=== PATIENT | male | born 1985 | race Caucasian/White ===

== ENCOUNTER 2019-07-19 11:21 | Inpatient (IN) ==
[2019-07-19] MEDS ORDERED: Ondansetron 4 MG/2 ML VIAL IVP ONE (11:28)
[2019-07-19] MEDS ORDERED: *HR* HYDROmorphone (PF) 1 MG/ML SYRINGE IVP ONE ×2 (11:28→13:22)
[2019-07-19] MEDS ORDERED: Isovue-370 500 ML BOTTLE IVP ONE (11:28)
[2019-07-19] MEDS ORDERED: 0.9 % Sodium Chloride 1,000 ML IVC ONE (11:28)
[2019-07-19 11:55] LABS: Bacteria,Urine Few per hpf (None-Few); Hyaline Casts,Urine None Seen per lpf (None-Few); RBC,Urine 0-3 per hpf (0-3); Squamous Epithelial Cell,Urine Many per lpf (None-Few)
[2019-07-19 11:56] LABS: Basophils % 0.3 %; Hematocrit 52.2 % (37.5-50.1); Hemoglobin 18.6 g/dL (12.9-16.9); Immature Granulocytes % 0.6 % (0-4); Lymphocytes # 0.8 K/mcL (0.6-4.6); Lymphocytes % 5.3 %; Mean Corpuscular HGB Conc 35.6 g/dL (31.6-35.5); Mean Corpuscular Hemoglobin 30.3 pg (28.0-33.3); Monocytes # 0.6 K/mcL (0.0-1.3); Monocytes % 4.1 %; Neutrophils # 12.7 K/mcL (1.6-8.9); Platelet Count 298 K/mcL (140-400); Red Blood Count 6.14 M/mcL (4.19-5.50); Red Cell Distribution Width 12.3 % (11.5-14.5); Segmented Neutrophils % 89.7 %; White Blood Count 14.1 K/mcL (4.3-11.1)
[2019-07-19 12:00] LABS: Clarity,Urine Clear (Clear); Color,Urine Yellow (Yellow); Glucose,Urine (UA) Normal (Normal)
[2019-07-19 12:01] LABS: Bilirubin,Urine Small (Negative); Blood,Urine Negative (Negative); Ketones,Urine 80 mg/dL (Negative); PH,Urine 5.5 pH Units (5.0-8.0); Specific Gravity,Urine > 1.030 (1.010-1.025)
[2019-07-19 12:02] LABS: Leukocyte Esterase,Urine Trace (Negative); Nitrite,Urine Negative (Negative); Protein,Urine 100 mg/dL (Neg-Trace); Urobilinogen,Urine Normal (Normal)
[2019-07-19 12:10] LABS: Alanine Aminotransferase 11 Units/L (7-52); Albumin 5.6 g/dL (3.5-5.7); Albumin/Globulin Ratio 1.9 (1.1-2.2); Alkaline Phosphatase 82 Units/L (34-104); Aspartate Amino Transferase 18 Units/L (13-39); BUN/Creatinine Ratio 16 (6-26); Bilirubin,Direct 0.1 mg/dL (0.0-0.2); Bilirubin,Indirect 0.6 mg/dL (0.0-1.0); Bilirubin,Total 0.7 mg/dL (0.3-1.0); Blood Urea Nitrogen 18 mg/dL (6-20); Calcium 11.6 mg/dL (8.6-10.3); Carbon Dioxide 28 mEq/L (23-29); Chloride 96 mEq/L (98-107); Glucose 114 mg/dL (70-105); Lipase 19 Units/L (11-82); Osmolality,Calculated 295 (280-300); Sodium 141 mEq/L (136-145); Total Protein 8.6 g/dL (6.4-8.9); eGFR For African Americans > 60 (> 60); eGFR For Non-African Americans > 60 (> 60)
[2019-07-19 15:37] LABS: Magnesium 1.8 mg/dL (1.6-2.6); Phosphorous 4.1 mg/dL (2.7-4.5)
[2019-07-19] MEDS: 0.9 % Sodium Chloride 1,000 ML IVC SCH (15:55)
[2019-07-19] MEDS: Ondansetron 4 MG/2 ML VIAL IVP PRN (19:52)
[2019-07-20] MEDS: 0.9 % Sodium Chloride 1,000 ML IVC SCH ×3 (00:05→18:10)
[2019-07-20 06:13] LABS: Basophils # 0.1 K/mcL (0.0-0.2); Basophils % 0.5 %; Eosinophils # 0.1 K/mcL (0.0-0.6); Eosinophils % 0.5 %; Hematocrit 44.8 % (37.5-50.1); Hemoglobin 15.4 g/dL (12.9-16.9); Immature Granulocytes % 0.5 % (0-4); Lymphocytes % 9.4 %; Mean Corpuscular HGB Conc 34.4 g/dL (31.6-35.5); Mean Corpuscular Hemoglobin 30.6 pg (28.0-33.3); Mean Corpuscular Volume 89.1 fL (83.0-100.0); Mean Platelet Volume 9.2 fL (9.4-12.4); Monocytes # 0.9 K/mcL (0.0-1.3); Monocytes % 8.2 %; Platelet Count 203 K/mcL (140-400); Red Blood Count 5.03 M/mcL (4.19-5.50); Red Cell Distribution Width 12.7 % (11.5-14.5); Segmented Neutrophils % 80.9 %; White Blood Count 11.1 K/mcL (4.3-11.1)
[2019-07-20 06:28] LABS: BUN/Creatinine Ratio 13 (6-26); Blood Urea Nitrogen 15 mg/dL (6-20); Calcium 9.4 mg/dL (8.6-10.3); Carbon Dioxide 27 mEq/L (23-29); Chloride 103 mEq/L (98-107); Glucose 105 mg/dL (70-105); Osmolality,Calculated 295 (280-300); Potassium 3.7 mEq/L (3.5-5.1); Sodium 142 mEq/L (136-145); eGFR For African Americans > 60 (> 60); eGFR For Non-African Americans > 60 (> 60)
[2019-07-20] MEDS ORDERED: Pantoprazole 40 MG VIAL IVP SCH (09:00)
[2019-07-20] MEDS ORDERED: *HR* FentaNYL (PF) 100 MCG/2 ML VIAL IVP ONE (12:55)
[2019-07-20] MEDS ORDERED: Ondansetron 4 MG/2 ML VIAL IVP ONE ×2 (12:55→19:07)
[2019-07-20] MEDS ORDERED: Acetaminophen IV 1,000 MG/100 ML INFUS..BTL IVPB ONE (12:55)
[2019-07-20] MEDS: Gabapentin 400 MG CAPSULE PO SCH (16:15)
[2019-07-20] MEDS: Ondansetron 4 MG/2 ML VIAL IVP PRN (16:28)
[2019-07-20] MEDS ORDERED: Morphine Sulfate 2 MG/ML SYRINGE IVP ONE (17:14)
[2019-07-20] MEDS ORDERED: CefOXitin 1,000 MG VIAL ONE (19:00)
[2019-07-20] MEDS ORDERED: *HR* HYDROmorphone (PF) 1 MG/ML SYRINGE IVP PRN (19:07)
[2019-07-20] MEDS ORDERED: *HR* Promethazine 25 MG/ML VIAL IVP PRN (19:07)
[2019-07-20] MEDS ORDERED: *HR* Midazolam HCl 5 MG/5 ML VIAL IVP ONE (19:20)
[2019-07-20] MEDS ORDERED: *HR* FentaNYL (PF) 100 MCG/2 ML VIAL ONE (19:20)
[2019-07-20] MEDS ORDERED: *HR* Propofol 200 MG/20 ML VIAL IVP ONE (19:21)
[2019-07-20] MEDS ORDERED: *HR* Rocuronium Bromide 50 MG/5 ML VIAL ONE (19:26)
[2019-07-20] MEDS ORDERED: Lidocaine -MPF 1% 5 ML AMPUL ONE (19:26)
[2019-07-20] MEDS ORDERED: Dexamethasone 4 MG/ML VIAL ONE (19:28)
[2019-07-20] MEDS ORDERED: *HR* Succinylcholine 200 MG/10 ML VIAL IVP ONE (19:30)
[2019-07-20] MEDS ORDERED: Famotidine 20 MG/2 ML VIAL ONE (19:42)
[2019-07-20] MEDS ORDERED: *HR* HYDROMORPHONE 2 MG/ML VIAL ONE ×2 (20:51→21:05)
[2019-07-20] MEDS ORDERED: Ringers Solution, Lactated 1,000 ML ONE (21:52)
[2019-07-20] MEDS ORDERED: *HR* Labetalol 20 MG/4 ML SYRINGE IVP ONE ×2 (21:55→21:57)
[2019-07-20] MEDS ORDERED: *HR* Metoprolol 5 MG/5 ML VIAL IVP PRN (22:12)
[2019-07-20 23:35] LABS: Basophils % 0.2 %; Eosinophils % 0.1 %; Hematocrit 32.8 % (37.5-50.1); Immature Granulocytes % 0.3 % (0-4); Lymphocytes # 0.6 K/mcL (0.6-4.6); Lymphocytes % 4.9 %; Mean Corpuscular HGB Conc 34.1 g/dL (31.6-35.5); Mean Corpuscular Hemoglobin 30.7 pg (28.0-33.3); Mean Corpuscular Volume 89.9 fL (83.0-100.0); Mean Platelet Volume 9.2 fL (9.4-12.4); Monocytes # 1.3 K/mcL (0.0-1.3); Monocytes % 10.7 %; Neutrophils # 10.5 K/mcL (1.6-8.9); Platelet Count 248 K/mcL (140-400); Red Blood Count 3.65 M/mcL (4.19-5.50); Red Cell Distribution Width 12.6 % (11.5-14.5); Segmented Neutrophils % 83.8 %; White Blood Count 12.5 K/mcL (4.3-11.1)
[2019-07-20 23:36] LABS: Hemoglobin 11.2 g/dL (12.9-16.9)
[2019-07-20 23:54] LABS: Alanine Aminotransferase 6 Units/L (7-52); Albumin 3.2 g/dL (3.5-5.7); Alkaline Phosphatase 39 Units/L (34-104); Aspartate Amino Transferase 11 Units/L (13-39); BUN/Creatinine Ratio 12 (6-26); Bilirubin,Total 0.6 mg/dL (0.3-1.0); Blood Urea Nitrogen 15 mg/dL (6-20); Calcium 7.9 mg/dL (8.6-10.3); Carbon Dioxide 24 mEq/L (23-29); Chloride 106 mEq/L (98-107); Globulin 1.6 g/dL (2.4-3.5); Glucose 225 mg/dL (70-105); Osmolality,Calculated 294 (280-300); Sodium 138 mEq/L (136-145); Total Protein 4.8 g/dL (6.4-8.9); eGFR For African Americans > 60 (> 60); eGFR For Non-African Americans > 60 (> 60)
[2019-07-21] MEDS: 0.9 % Sodium Chloride 1,000 ML IVC SCH ×6 (00:12→23:26)
[2019-07-21 05:42] LABS: Basophils % 0.2 %; Hematocrit 29.2 % (37.5-50.1); Immature Granulocytes % 0.3 % (0-4); Lymphocytes # 0.5 K/mcL (0.6-4.6); Lymphocytes % 5.8 %; Mean Corpuscular HGB Conc 32.5 g/dL (31.6-35.5); Mean Corpuscular Hemoglobin 30.4 pg (28.0-33.3); Mean Corpuscular Volume 93.6 fL (83.0-100.0); Mean Platelet Volume 9.9 fL (9.4-12.4); Monocytes % 10.8 %; Neutrophils # 7.6 K/mcL (1.6-8.9); Platelet Count 205 K/mcL (140-400); Red Blood Count 3.12 M/mcL (4.19-5.50); Red Cell Distribution Width 12.7 % (11.5-14.5); Segmented Neutrophils % 82.9 %; White Blood Count 9.1 K/mcL (4.3-11.1)
[2019-07-21 05:48] LABS: Hemoglobin 9.5 g/dL (12.9-16.9)
[2019-07-21 08:03] LABS: BUN/Creatinine Ratio 14 (6-26); Blood Urea Nitrogen 20 mg/dL (6-20); Calcium 8.2 mg/dL (8.6-10.3); Carbon Dioxide 26 mEq/L (23-29); Chloride 104 mEq/L (98-107); Glucose 176 mg/dL (70-105); Osmolality,Calculated 299 (280-300); Potassium 4.4 mEq/L (3.5-5.1); Sodium 141 mEq/L (136-145); eGFR For African Americans > 60 (> 60); eGFR For Non-African Americans 59 (> 60)
[2019-07-21] MEDS ORDERED: Ondansetron 4 MG/2 ML VIAL IVP PRN (08:46)
[2019-07-21] MEDS ORDERED: Pantoprazole 40 MG VIAL IVP SCH (09:00)
[2019-07-21] MEDS: Gabapentin 400 MG CAPSULE PO SCH (09:15)
[2019-07-21] MEDS: Acetaminophen IV 1,000 MG/100 ML INFUS..BTL IVPB SCH ×3 (11:23→17:50)
[2019-07-21 14:33] LABS: Hematocrit 23.7 % (37.5-50.1); Hemoglobin 8.1 g/dL (12.9-16.9)
[2019-07-21] MEDS ORDERED: *HR* FentaNYL (PF) 100 MCG/2 ML VIAL IVP ONE (17:35)
[2019-07-21] MEDS ORDERED: 0.9 % Sodium Chloride 500 ML IV ONE (17:43)
[2019-07-21] MEDS ORDERED: *HR* Heparin 5,000 UNIT/ML VIAL SQ SCH (18:00)
[2019-07-21 18:20] LABS: Hematocrit 21.7 % (37.5-50.1); Hemoglobin 7.2 g/dL (12.9-16.9)
[2019-07-21] MEDS ORDERED: 0.9 % Sodium Chloride 250 ML ONE (21:20)
[2019-07-21 21:45] LABS: Hematocrit 19.6 % (37.5-50.1); Hemoglobin 6.7 g/dL (12.9-16.9)
[2019-07-21] MEDS ORDERED: Piperacillin/Tazobactam 3.375 GM in 0.9 % Sodium Chloride Mini Bag 100 ML IVP ONE (23:14)
[2019-07-22] MEDS ORDERED: 0.9 % Sodium Chloride 250 ML ONE (00:25)
[2019-07-22] MEDS: Acetaminophen IV 1,000 MG/100 ML INFUS..BTL IVPB SCH ×4 (02:33→17:08)
[2019-07-22] MEDS ORDERED: *HR* OxyCODONE Immed Rel 5 MG TABLET PO PRN (02:56)
[2019-07-22] MEDS ORDERED: *HR* HYDROmorphone (PF) 1 MG/ML SYRINGE IVP PRN (02:56)
[2019-07-22] MEDS ORDERED: Ondansetron 4 MG/2 ML VIAL IVP ONE (02:56)
[2019-07-22] MEDS ORDERED: *HR* FentaNYL (PF) 100 MCG/2 ML VIAL ONE ×2 (03:10→05:26)
[2019-07-22] MEDS ORDERED: *HR* Propofol 200 MG/20 ML VIAL IVP ONE (03:11)
[2019-07-22] MEDS ORDERED: Ondansetron 4 MG/2 ML VIAL ONE ×2 (03:12→06:32)
[2019-07-22] MEDS ORDERED: Dexamethasone 4 MG/ML VIAL ONE (03:12)
[2019-07-22] MEDS ORDERED: Ketorolac 30 MG/ML VIAL ONE (03:12)
[2019-07-22] MEDS ORDERED: *HR* Rocuronium Bromide 50 MG/5 ML VIAL ONE (03:12)
[2019-07-22] MEDS ORDERED: Lidocaine -MPF 2% 2 ML VIAL ONE (03:12)
[2019-07-22] MEDS ORDERED: *HR* Succinylcholine 200 MG/10 ML VIAL IVP ONE (03:12)
[2019-07-22] MEDS ORDERED: 0.9 % Sodium Chloride 500 ML ONE (05:53)
[2019-07-22] MEDS ORDERED: Neostigmine Methylsulfate 3 MG/3 ML SYRINGE ONE (06:11)
[2019-07-22] MEDS: *HR* Promethazine 25 MG/ML VIAL IVP PRN ×2 (06:47→06:56)
[2019-07-22] MEDS ORDERED: Haloperidol Lactate 5 MG/ML VIAL IVP ONE (07:11)
[2019-07-22] MEDS ORDERED: 0.9 % Sodium Chloride 250 ML IVC SCH (07:46)
[2019-07-22] MEDS ORDERED: Ondansetron 4 MG/2 ML VIAL IVP PRN (07:46)
[2019-07-22] MEDS: 0.9 % Sodium Chloride 1,000 ML IVC SCH ×2 (08:37→15:09)
[2019-07-22] MEDS: Pantoprazole 40 MG VIAL IVP SCH (08:52)
[2019-07-22 15:10] LABS: BUN/Creatinine Ratio 16 (6-26); Blood Urea Nitrogen 21 mg/dL (6-20); Calcium 7.7 mg/dL (8.6-10.3); Carbon Dioxide 27 mEq/L (23-29); Chloride 107 mEq/L (98-107); Glucose 114 mg/dL (70-105); Osmolality,Calculated 290 (280-300); Sodium 138 mEq/L (136-145); eGFR For African Americans > 60 (> 60); eGFR For Non-African Americans > 60 (> 60)
[2019-07-22 16:08] LABS: Hematocrit 23.8 % (37.5-50.1); Hemoglobin 8.2 g/dL (12.9-16.9); Mean Corpuscular HGB Conc 34.5 g/dL (31.6-35.5); Mean Corpuscular Hemoglobin 30.5 pg (28.0-33.3); Mean Corpuscular Volume 88.5 fL (83.0-100.0); Mean Platelet Volume 10.2 fL (9.4-12.4); Platelet Count 103 K/mcL (140-400); Red Blood Count 2.69 M/mcL (4.19-5.50); Red Cell Distribution Width 13.7 % (11.5-14.5); White Blood Count 10.2 K/mcL (4.3-11.1)
[2019-07-22 22:41] LABS: Hematocrit 21.9 % (37.5-50.1); Hemoglobin 7.7 g/dL (12.9-16.9)
[2019-07-23] MEDS: 0.9 % Sodium Chloride 1,000 ML IVC SCH ×4 (00:12→18:49)
[2019-07-23] MEDS: Acetaminophen IV 1,000 MG/100 ML INFUS..BTL IVPB SCH ×4 (00:13→17:20)
[2019-07-23 05:26] LABS: Basophils % 0.3 %; Eosinophils % 0.1 %; Hematocrit 23.3 % (37.5-50.1); Immature Granulocytes % 0.9 % (0-4); Lymphocytes # 1.7 K/mcL (0.6-4.6); Lymphocytes % 12.1 %; Mean Corpuscular HGB Conc 34.3 g/dL (31.6-35.5); Mean Corpuscular Hemoglobin 30.4 pg (28.0-33.3); Mean Corpuscular Volume 88.6 fL (83.0-100.0); Mean Platelet Volume 9.9 fL (9.4-12.4); Monocytes # 2.3 K/mcL (0.0-1.3); Monocytes % 16.6 %; Neutrophils # 9.6 K/mcL (1.6-8.9); Nucleated Red Blood Cells 0.7 /100 WBC (0); Platelet Count 158 K/mcL (140-400); Red Blood Count 2.63 M/mcL (4.19-5.50); Red Cell Distribution Width 14.1 % (11.5-14.5); White Blood Count 13.7 K/mcL (4.3-11.1)
[2019-07-23 05:42] LABS: BUN/Creatinine Ratio 14 (6-26); Blood Urea Nitrogen 15 mg/dL (6-20); Calcium 8.2 mg/dL (8.6-10.3); Carbon Dioxide 26 mEq/L (23-29); Chloride 104 mEq/L (98-107); Glucose 103 mg/dL (70-105); Osmolality,Calculated 293 (280-300); Potassium 3.4 mEq/L (3.5-5.1); Sodium 141 mEq/L (136-145); eGFR For African Americans > 60 (> 60); eGFR For Non-African Americans > 60 (> 60)
[2019-07-23] MEDS: Pantoprazole 40 MG VIAL IVP SCH (09:19)
[2019-07-24] MEDS: Acetaminophen IV 1,000 MG/100 ML INFUS..BTL IVPB SCH ×6 (00:31→23:49)
[2019-07-24] MEDS: 0.9 % Sodium Chloride 1,000 ML IVC SCH ×2 (01:15→06:52)
[2019-07-24 04:33] LABS: Basophils # 0.1 K/mcL (0.0-0.2); Basophils % 0.5 %; Eosinophils # 0.2 K/mcL (0.0-0.6); Eosinophils % 1.9 %; Hematocrit 20.5 % (37.5-50.1); Hemoglobin 7.1 g/dL (12.9-16.9); Immature Granulocytes % 0.9 % (0-4); Lymphocytes # 1.2 K/mcL (0.6-4.6); Lymphocytes % 11.5 %; Mean Corpuscular HGB Conc 34.6 g/dL (31.6-35.5); Mean Corpuscular Hemoglobin 30.3 pg (28.0-33.3); Mean Corpuscular Volume 87.6 fL (83.0-100.0); Mean Platelet Volume 9.3 fL (9.4-12.4); Monocytes # 1.7 K/mcL (0.0-1.3); Monocytes % 15.8 %; Neutrophils # 7.3 K/mcL (1.6-8.9); Nucleated Red Blood Cells 1.7 /100 WBC (0); Platelet Count 207 K/mcL (140-400); Red Blood Count 2.34 M/mcL (4.19-5.50); Red Cell Distribution Width 13.6 % (11.5-14.5); Segmented Neutrophils % 69.4 %; White Blood Count 10.6 K/mcL (4.3-11.1)
[2019-07-24 04:52] LABS: BUN/Creatinine Ratio 8 (6-26); Blood Urea Nitrogen 7 mg/dL (6-20); Carbon Dioxide 27 mEq/L (23-29); Chloride 101 mEq/L (98-107); Glucose 93 mg/dL (70-105); Osmolality,Calculated 280 (280-300); Potassium 3.3 mEq/L (3.5-5.1); Sodium 136 mEq/L (136-145); eGFR For African Americans > 60 (> 60); eGFR For Non-African Americans > 60 (> 60)
[2019-07-24] MEDS ORDERED: 0.9 % Sodium Chloride 250 ML ONE (08:56)
[2019-07-24] MEDS: Pantoprazole 40 MG VIAL IVP SCH (08:58)
[2019-07-24] MEDS ORDERED: [UNRECOGNIZED DRUG - OTHER] IM ONE (16:30)
[2019-07-25] MEDS: Acetaminophen IV 1,000 MG/100 ML INFUS..BTL IVPB SCH (06:01)
[2019-07-25] MEDS ORDERED: Pneumoccal 13-Valent Vaccine 0.5 ML SYRINGE IM ONE (08:00)
[2019-07-25] MEDS: Pantoprazole 40 MG VIAL IVP SCH (08:29)
[2019-07-25] MEDS ORDERED: Haemoph B Poly Conj-Tet Tox/PF 10 MCG/0.5 ML VIAL IM ONE (10:00)
[2019-07-25] MEDS ORDERED: [UNRECOGNIZED DRUG - OTHER] IM ONE (10:30)
[2019-07-25 11:05] LABS: Basophils # 0.1 K/mcL (0.0-0.2); Basophils % 0.5 %; Eosinophils # 0.5 K/mcL (0.0-0.6); Eosinophils % 3.7 %; Hematocrit 27.3 % (37.5-50.1); Immature Granulocytes % 1.5 % (0-4); Lymphocytes # 1.1 K/mcL (0.6-4.6); Lymphocytes % 8.2 %; Mean Corpuscular HGB Conc 33.3 g/dL (31.6-35.5); Mean Corpuscular Hemoglobin 29.8 pg (28.0-33.3); Mean Corpuscular Volume 89.5 fL (83.0-100.0); Mean Platelet Volume 9.6 fL (9.4-12.4); Monocytes % 14.1 %; Nucleated Red Blood Cells 4.9 /100 WBC (0); Platelet Count 359 K/mcL (140-400); Red Blood Count 3.05 M/mcL (4.19-5.50); Red Cell Distribution Width 13.6 % (11.5-14.5); White Blood Count 13.9 K/mcL (4.3-11.1)
[2019-07-25] MEDS ORDERED: FLU Vac QV 19-20 (6Month+)/PF 0.5 ML SYRINGE IM ONE (11:07)
[2019-07-25 11:10] LABS: Hemoglobin 9.1 g/dL (12.9-16.9)
[2019-07-25 11:19] LABS: BUN/Creatinine Ratio 8 (6-26); Blood Urea Nitrogen 7 mg/dL (6-20); Calcium 8.8 mg/dL (8.6-10.3); Carbon Dioxide 26 mEq/L (23-29); Chloride 99 mEq/L (98-107); Glucose 103 mg/dL (70-105); Osmolality,Calculated 280 (280-300); Sodium 136 mEq/L (136-145); eGFR For African Americans > 60 (> 60); eGFR For Non-African Americans > 60 (> 60)
[2019-07-25 11:46] VITALS: BP 154/78
== END 2019-07-25 13:07 | disposition home or self-care (01) | DRG 335 ==
LOC: EMEROOARM 11:21 → 2ANU 11:21 → SUATTDRO 14:03 → 2ANU 14:51 → SUATTDRO 07-21 19:47
PROVIDERS: ADMIT Family Medicine; ATTEND Internal Medicine

== ENCOUNTER 2021-12-06 20:31 | Inpatient (IN) ==
[2021-12-06] MEDS ORDERED: Ondansetron 4 MG/2 ML VIAL IVP ONE (21:45)
[2021-12-06] MEDS ORDERED: 0.9 % Sodium Chloride 1,000 ML IV ONE ×2 (21:45→22:45)
[2021-12-06 22:15] LABS: Basophils # 0.1 K/mcL (0.0-0.2); Basophils % 0.3 %; Hematocrit 43.8 % (37.5-50.1); Hemoglobin 14.9 g/dL (12.9-16.9); Immature Granulocytes % 0.6 % (0-4); Lymphocytes # 1.4 K/mcL (0.6-4.6); Lymphocytes % 6.7 %; Mean Corpuscular Volume 91.1 fL (83.0-100.0); Mean Platelet Volume 9.6 fL (9.4-12.4); Monocytes # 2.7 K/mcL (0.0-1.3); Monocytes % 12.9 %; Neutrophils # 16.4 K/mcL (1.6-8.9); Platelet Count 458 K/mcL (140-400); Red Blood Count 4.81 M/mcL (4.19-5.50); Red Cell Distribution Width 12.7 % (11.5-14.5); Segmented Neutrophils % 79.5 %; White Blood Count 20.6 K/mcL (4.3-11.1)
[2021-12-06 22:31] LABS: Alanine Aminotransferase 9 Units/L (7-52); Albumin 4.9 g/dL (3.5-5.7); Albumin/Globulin Ratio 1.3 (1.1-2.2); Alkaline Phosphatase 65 Units/L (34-104); Amylase 26 Units/L (29-103); Aspartate Amino Transferase 11 Units/L (13-39); BUN/Creatinine Ratio 17 (6-26); Bilirubin,Total 0.6 mg/dL (0.3-1.0); Blood Urea Nitrogen 18 mg/dL (6-20); Calcium 10.7 mg/dL (8.6-10.3); Carbon Dioxide 29 mEq/L (23-29); Chloride 97 mEq/L (98-107); Globulin 3.7 g/dL (2.4-3.5); Glucose 119 mg/dL (70-105); Lipase 12 Units/L (11-82); Osmolality,Calculated 293 (280-300); Potassium 3.3 mEq/L (3.5-5.1); Sodium 140 mEq/L (136-145); Total Protein 8.6 g/dL (6.4-8.9); eGFR For African Americans > 60 (> 60); eGFR For Non-African Americans > 60 (> 60)
[2021-12-06] MEDS ORDERED: Isovue-370 500 ML BOTTLE IVP ONE (22:44)
[2021-12-06] MEDS ORDERED: *HR* FentaNYL (PF) 100 MCG/2 ML VIAL IVP ONE (22:45)
[2021-12-06] MEDS ORDERED: Piperacillin/Tazobactam 3.375 GM in 0.9 % Sodium Chloride Mini Bag 100 ML IVP ONE (23:49)
[2021-12-07 00:30] LABS: Bilirubin,Urine Small (Negative); Blood,Urine Negative (Negative); Clarity,Urine Clear (Clear); Color,Urine Yellow (Yellow); Glucose,Urine (UA) Normal (Normal); Ketones,Urine 100 mg/dL (Negative); Leukocyte Esterase,Urine Negative (Negative); Nitrite,Urine Negative (Negative); Protein,Urine 100 mg/dL (Neg-Trace); RBC,Urine 0-3 per hpf (0-3); Specific Gravity,Urine > 1.030 (1.010-1.025)
[2021-12-07 00:31] LABS: Bacteria,Urine Few per hpf (None-Few); Mucus,Urine Few per lpf (None-Few); Squamous Epithelial Cell,Urine Few per hpf (None-Few)
[2021-12-07] MEDS ORDERED: *HR* Dextrose 50 % in Water (Syg) 50 ML SYRINGE IVP PRN ×3 (01:15→21:16)
[2021-12-07] MEDS ORDERED: 0.9 % Sodium Chloride 500 ML IVC ONE (01:42)
[2021-12-07] MEDS ORDERED: Melatonin 3 MG TABLET PO PRN (01:45)
[2021-12-07] MEDS ORDERED: Naloxone 0.4 MG/ML INJ IVP PRN ×3 (01:45→21:16)
[2021-12-07] MEDS ORDERED: metroNIDAZOLE 500 MG TABLET PO SCH (01:45)
[2021-12-07] MEDS ORDERED: Ondansetron 4 MG/2 ML VIAL IVP PRN ×3 (02:36→21:16)
[2021-12-07] MEDS: 0.9 % Sodium Chloride 1,000 ML IVC SCH ×3 (03:08→23:21)
[2021-12-07] MEDS: Ondansetron 4 MG/2 ML VIAL IVP PRN ×2 (03:10→09:53)
[2021-12-07 03:46] LABS: Basophils # 0.1 K/mcL (0.0-0.2); Basophils % 0.3 %; Eosinophils % 0.1 %; Hematocrit 37.5 % (37.5-50.1); Immature Granulocytes % 0.7 % (0-4); Lymphocytes # 1.2 K/mcL (0.6-4.6); Lymphocytes % 6.9 %; Mean Corpuscular HGB Conc 33.9 g/dL (31.6-35.5); Mean Corpuscular Hemoglobin 30.9 pg (28.0-33.3); Mean Corpuscular Volume 91.2 fL (83.0-100.0); Monocytes # 2.4 K/mcL (0.0-1.3); Monocytes % 13.6 %; Neutrophils # 13.9 K/mcL (1.6-8.9); Platelet Count 398 K/mcL (140-400); Red Blood Count 4.11 M/mcL (4.19-5.50); Red Cell Distribution Width 12.4 % (11.5-14.5); Segmented Neutrophils % 78.4 %; White Blood Count 17.7 K/mcL (4.3-11.1)
[2021-12-07 03:50] LABS: INR 1.3
[2021-12-07 03:51] LABS: Hemoglobin 12.7 g/dL (12.9-16.9)
[2021-12-07 03:52] LABS: BUN/Creatinine Ratio 19 (6-26); Blood Urea Nitrogen 17 mg/dL (6-20); Calcium 9.2 mg/dL (8.6-10.3); Carbon Dioxide 22 mEq/L (23-29); Chloride 104 mEq/L (98-107); Glucose 103 mg/dL (70-105); Magnesium 1.8 mg/dL (1.6-2.6); Osmolality,Calculated 294 (280-300); Phosphorous 2.7 mg/dL (2.7-4.5); Potassium 3.3 mEq/L (3.5-5.1); Sodium 141 mEq/L (136-145); eGFR For African Americans > 60 (> 60); eGFR For Non-African Americans > 60 (> 60)
[2021-12-07 03:53] LABS: Activated Partial Thrombo Time 31.2 Seconds (26.0-36.0)
[2021-12-07] MEDS: Fluconazole 400 MG/200 ML 400 MG/200 ML BAG IVPB SCH ×2 (05:34→07:46)
[2021-12-07] MEDS ORDERED: D5% in Water 1,000 ML IVC PRN ×2 (06:52→21:16)
[2021-12-07] MEDS ORDERED: Dextrose 4 GM Chewable Tablets PO PRN ×4 (06:52→21:16)
[2021-12-07] MEDS: Piperacillin/Tazobactam 3.375 GM in 0.9 % Sodium Chloride Mini Bag 100 ML IVPB SCH ×3 (07:46→23:26)
[2021-12-07] MEDS: Lactobacillus 1 EACH CAP.SPRINK PO SCH ×2 (07:47→20:11)
[2021-12-07] MEDS: Chlorhexidine Rinse 15 ML MOUTHWASH MM SCH ×2 (07:48→20:06)
[2021-12-07] MEDS ORDERED: Pantoprazole 40 MG VIAL IVP SCH (09:00)
[2021-12-07] MEDS ORDERED: Multivit/Ca/Min/Fe/FA 1 TAB TABLET PO SCH (09:00)
[2021-12-07] MEDS ORDERED: *HR* Propofol 200 MG/20 ML VIAL IVP ONE (14:23)
[2021-12-07] MEDS ORDERED: *HR* Midazolam HCl 2 MG/2 ML VIAL ONE (14:42)
[2021-12-07] MEDS ORDERED: Ketamine HCL *QUVA* 50mg (1mL) SYRINGE ONE (14:42)
[2021-12-07] MEDS ORDERED: *HR* FentaNYL (PF) 100 MCG/2 ML VIAL ONE (14:42)
[2021-12-07] MEDS ORDERED: *HR* Metoprolol 5 MG/5 ML VIAL IVP PRN (15:08)
[2021-12-07] MEDS ORDERED: Ipratropium Neb 0.5 MG NEBULIZER IH PRN (15:08)
[2021-12-07] MEDS ORDERED: Albuterol 2.5 MG/3 ML NEBULIZER IH PRN (15:08)
[2021-12-07] MEDS ORDERED: Acetaminophen IV 1,000 MG/100 ML BAG IVPB ONE ×2 (15:10→16:16)
[2021-12-07] MEDS ORDERED: Lidocaine -MPF 2% 2 ML VIAL ONE (16:13)
[2021-12-07] MEDS ORDERED: Ondansetron 4 MG/2 ML VIAL ONE (16:13)
[2021-12-07] MEDS ORDERED: *HR* Rocuronium Bromide 50 MG/5 ML VIAL ONE ×2 (16:13→16:38)
[2021-12-07] MEDS ORDERED: *HR* Succinylcholine 200 MG/10 ML VIAL IVP ONE (16:13)
[2021-12-07] MEDS ORDERED: *HR* HYDROMORPHONE 2 MG/ML VIAL ONE (16:14)
[2021-12-07] MEDS ORDERED: Sugammadex Sodium 200 MG/2 ML VIAL IV ONE (17:04)
[2021-12-07] MEDS: *HR* HYDROmorphone PF 0.5 MG/0.5 ML SYRINGE IVP PRN ×2 (17:55→18:11)
[2021-12-07] MEDS: Pantoprazole 40 MG in 0.9 % Sodium Chloride Mini Bag 100 ML IVC SCH ×2 (20:06→23:23)
[2021-12-07] MEDS: Morphine PCA 30 MG/ 30 ML 30 ML PCA.VIAL IVC PRN (22:21)
[2021-12-07] MEDS: *HR* Heparin 5,000 UNIT/ML VIAL SQ SCH (23:21)
[2021-12-07] MEDS: Ketorolac 30 MG/ML VIAL IVP SCH (23:26)
[2021-12-08 01:40] LABS: Basophils % 0.1 %; Hemoglobin 11.9 g/dL (12.9-16.9); Immature Granulocytes % 0.7 % (0-4); Lymphocytes # 0.7 K/mcL (0.6-4.6); Mean Corpuscular HGB Conc 33.1 g/dL (31.6-35.5); Mean Corpuscular Hemoglobin 31.4 pg (28.0-33.3); Mean Platelet Volume 9.6 fL (9.4-12.4); Monocytes # 0.9 K/mcL (0.0-1.3); Monocytes % 5.3 %; Platelet Count 403 K/mcL (140-400); Red Blood Count 3.79 M/mcL (4.19-5.50); Red Cell Distribution Width 12.7 % (11.5-14.5); Segmented Neutrophils % 89.9 %; White Blood Count 16.7 K/mcL (4.3-11.1)
[2021-12-08 02:01] LABS: BUN/Creatinine Ratio 14 (6-26); Blood Urea Nitrogen 11 mg/dL (6-20); Calcium 8.6 mg/dL (8.6-10.3); Carbon Dioxide 20 mEq/L (23-29); Chloride 107 mEq/L (98-107); Glucose 113 mg/dL (70-105); Osmolality,Calculated 288 (280-300); Potassium 3.9 mEq/L (3.5-5.1); Sodium 139 mEq/L (136-145); eGFR For African Americans > 60 (> 60); eGFR For Non-African Americans > 60 (> 60)
[2021-12-08] MEDS: Morphine PCA 30 MG/ 30 ML 30 ML PCA.VIAL IVC PRN ×2 (04:22→21:44)
[2021-12-08] MEDS: Ketorolac 30 MG/ML VIAL IVP SCH ×4 (04:28→23:29)
[2021-12-08] MEDS: *HR* Heparin 5,000 UNIT/ML VIAL SQ SCH ×2 (04:29→18:41)
[2021-12-08] MEDS: 0.9 % Sodium Chloride 1,000 ML IVC SCH ×2 (05:36→15:14)
[2021-12-08] MEDS ORDERED: Fluconazole 400 MG/200 ML 400 MG/200 ML BAG IVPB SCH (09:00)
[2021-12-08] MEDS: Piperacillin/Tazobactam 3.375 GM in 0.9 % Sodium Chloride Mini Bag 100 ML IVPB SCH ×3 (09:20→23:28)
[2021-12-08] MEDS: Fluconazole 400 MG/200 ML 400 MG/200 ML BAG IVPB SCH (09:21)
[2021-12-08] MEDS ORDERED: Orphenadrine 60 MG/2 ML VIAL IVP PRN (09:43)
[2021-12-08] MEDS ORDERED: Chloraseptic Spray 177 ML BOTTLE MM PRN (09:45)
[2021-12-08] MEDS ORDERED: Saliva Stimulant 44.3ml BOTTLE PO PRN (09:45)
[2021-12-08] MEDS ORDERED: Pantoprazole 40 MG VIAL IVP SCH (17:00)
[2021-12-08] MEDS: Pantoprazole 40 MG VIAL IVP SCH ×2 (18:40→19:10)
[2021-12-09] MEDS: 0.9 % Sodium Chloride 1,000 ML IVC SCH ×3 (01:24→22:50)
[2021-12-09 02:41] LABS: Basophils % 0.2 %; Eosinophils % 0.1 %; Hematocrit 32.3 % (37.5-50.1); Hemoglobin 10.7 g/dL (12.9-16.9); Immature Granulocytes % 0.6 % (0-4); Lymphocytes # 2.3 K/mcL (0.6-4.6); Lymphocytes % 15.6 %; Mean Corpuscular HGB Conc 33.1 g/dL (31.6-35.5); Mean Corpuscular Hemoglobin 31.1 pg (28.0-33.3); Mean Corpuscular Volume 93.9 fL (83.0-100.0); Mean Platelet Volume 9.9 fL (9.4-12.4); Monocytes # 1.9 K/mcL (0.0-1.3); Monocytes % 12.9 %; Neutrophils # 10.3 K/mcL (1.6-8.9); Platelet Count 410 K/mcL (140-400); Red Blood Count 3.44 M/mcL (4.19-5.50); Red Cell Distribution Width 12.9 % (11.5-14.5); Segmented Neutrophils % 70.6 %; White Blood Count 14.5 K/mcL (4.3-11.1)
[2021-12-09 03:05] LABS: BUN/Creatinine Ratio 13 (6-26); Blood Urea Nitrogen 11 mg/dL (6-20); Calcium 8.6 mg/dL (8.6-10.3); Carbon Dioxide 22 mEq/L (23-29); Chloride 108 mEq/L (98-107); Glucose 90 mg/dL (70-105); Osmolality,Calculated 289 (280-300); Potassium 3.4 mEq/L (3.5-5.1); Sodium 140 mEq/L (136-145); eGFR For African Americans > 60 (> 60); eGFR For Non-African Americans > 60 (> 60)
[2021-12-09 03:06] LABS: Magnesium 1.7 mg/dL (1.6-2.6); Phosphorous 2.3 mg/dL (2.7-4.5)
[2021-12-09] MEDS: Ketorolac 30 MG/ML VIAL IVP SCH ×4 (05:50→23:52)
[2021-12-09] MEDS: Pantoprazole 40 MG VIAL IVP SCH ×2 (05:50→19:06)
[2021-12-09] MEDS: *HR* Heparin 5,000 UNIT/ML VIAL SQ SCH ×2 (05:50→19:06)
[2021-12-09] MEDS: Fluconazole 400 MG/200 ML 400 MG/200 ML BAG IVPB SCH (09:44)
[2021-12-09] MEDS: Piperacillin/Tazobactam 3.375 GM in 0.9 % Sodium Chloride Mini Bag 100 ML IVPB SCH ×3 (09:44→23:53)
[2021-12-09] MEDS: Morphine PCA 30 MG/ 30 ML 30 ML PCA.VIAL IVC PRN (19:09)
[2021-12-10 02:27] LABS: Basophils # 0.1 K/mcL (0.0-0.2); Basophils % 0.8 %; Eosinophils # 0.2 K/mcL (0.0-0.6); Eosinophils % 1.8 %; Hematocrit 29.3 % (37.5-50.1); Hemoglobin 9.8 g/dL (12.9-16.9); Immature Granulocytes % 0.4 % (0-4); Lymphocytes # 2.7 K/mcL (0.6-4.6); Lymphocytes % 27.2 %; Mean Corpuscular HGB Conc 33.4 g/dL (31.6-35.5); Mean Corpuscular Hemoglobin 30.9 pg (28.0-33.3); Mean Corpuscular Volume 92.4 fL (83.0-100.0); Mean Platelet Volume 9.8 fL (9.4-12.4); Monocytes # 1.2 K/mcL (0.0-1.3); Monocytes % 12.6 %; Neutrophils # 5.7 K/mcL (1.6-8.9); Platelet Count 407 K/mcL (140-400); Red Blood Count 3.17 M/mcL (4.19-5.50); Red Cell Distribution Width 12.8 % (11.5-14.5); Segmented Neutrophils % 57.2 %; White Blood Count 9.9 K/mcL (4.3-11.1)
[2021-12-10 02:50] LABS: BUN/Creatinine Ratio 13 (6-26); Blood Urea Nitrogen 10 mg/dL (6-20); Calcium 8.5 mg/dL (8.6-10.3); Carbon Dioxide 23 mEq/L (23-29); Chloride 107 mEq/L (98-107); Glucose 77 mg/dL (70-105); Magnesium 1.6 mg/dL (1.6-2.6); Osmolality,Calculated 288 (280-300); Phosphorous 3.1 mg/dL (2.7-4.5); Potassium 3.5 mEq/L (3.5-5.1); Sodium 140 mEq/L (136-145); eGFR For African Americans > 60 (> 60); eGFR For Non-African Americans > 60 (> 60)
[2021-12-10] MEDS: *HR* Heparin 5,000 UNIT/ML VIAL SQ SCH ×2 (05:24→18:28)
[2021-12-10] MEDS: Pantoprazole 40 MG VIAL IVP SCH ×2 (05:24→18:28)
[2021-12-10] MEDS: Ketorolac 30 MG/ML VIAL IVP SCH ×3 (05:25→18:28)
[2021-12-10] MEDS: Piperacillin/Tazobactam 3.375 GM in 0.9 % Sodium Chloride Mini Bag 100 ML IVPB SCH ×3 (08:55→23:58)
[2021-12-10] MEDS: 0.9 % Sodium Chloride 1,000 ML IVC SCH ×2 (08:56→21:02)
[2021-12-10] MEDS: Fluconazole 400 MG/200 ML 400 MG/200 ML BAG IVPB SCH (08:56)
[2021-12-10] MEDS: Morphine PCA 30 MG/ 30 ML 30 ML PCA.VIAL IVC PRN (15:07)
[2021-12-11] MEDS: Ketorolac 30 MG/ML VIAL IVP SCH ×4 (00:10→18:21)
[2021-12-11 03:28] LABS: Magnesium 1.6 mg/dL (1.6-2.6); Phosphorous 3.4 mg/dL (2.7-4.5)
[2021-12-11] MEDS: *HR* Heparin 5,000 UNIT/ML VIAL SQ SCH ×2 (05:22→18:21)
[2021-12-11] MEDS: Pantoprazole 40 MG VIAL IVP SCH ×2 (05:23→18:21)
[2021-12-11] MEDS: 0.9 % Sodium Chloride 1,000 ML IVC SCH ×2 (07:45→18:34)
[2021-12-11] MEDS: Fluconazole 400 MG/200 ML 400 MG/200 ML BAG IVPB SCH (07:46)
[2021-12-11] MEDS: Piperacillin/Tazobactam 3.375 GM in 0.9 % Sodium Chloride Mini Bag 100 ML IVPB SCH ×2 (07:46→16:20)
[2021-12-11 08:44] LABS: Basophils # 0.1 K/mcL (0.0-0.2); Basophils % 1.1 %; Eosinophils # 0.4 K/mcL (0.0-0.6); Eosinophils % 3.7 %; Hematocrit 32.9 % (37.5-50.1); Immature Granulocytes % 0.6 % (0-4); Lymphocytes # 2.4 K/mcL (0.6-4.6); Lymphocytes % 22.3 %; Mean Corpuscular HGB Conc 33.4 g/dL (31.6-35.5); Mean Corpuscular Hemoglobin 31.1 pg (28.0-33.3); Mean Corpuscular Volume 92.9 fL (83.0-100.0); Mean Platelet Volume 9.7 fL (9.4-12.4); Monocytes # 1.3 K/mcL (0.0-1.3); Monocytes % 11.9 %; Neutrophils # 6.4 K/mcL (1.6-8.9); Platelet Count 502 K/mcL (140-400); Red Blood Count 3.54 M/mcL (4.19-5.50); Red Cell Distribution Width 12.5 % (11.5-14.5); Segmented Neutrophils % 60.4 %; White Blood Count 10.5 K/mcL (4.3-11.1)
[2021-12-11 08:58] LABS: BUN/Creatinine Ratio 10 (6-26); Blood Urea Nitrogen 8 mg/dL (6-20); Calcium 8.9 mg/dL (8.6-10.3); Carbon Dioxide 23 mEq/L (23-29); Chloride 103 mEq/L (98-107); Glucose 66 mg/dL (70-105); Osmolality,Calculated 285 (280-300); Potassium 3.3 mEq/L (3.5-5.1); Sodium 139 mEq/L (136-145); eGFR For African Americans > 60 (> 60); eGFR For Non-African Americans > 60 (> 60)
[2021-12-11] MEDS ORDERED: Acetaminophen 325 MG TABLET PO PRN (14:12)
[2021-12-11] MEDS ORDERED: *HR* OxyCODONE Immed Rel 5 MG TABLET PO PRN ×2 (14:12)
[2021-12-12] MEDS: Piperacillin/Tazobactam 3.375 GM in 0.9 % Sodium Chloride Mini Bag 100 ML IVPB SCH ×2 (00:04→08:58)
[2021-12-12] MEDS: Ketorolac 30 MG/ML VIAL IVP SCH ×2 (00:05→05:18)
[2021-12-12 03:26] LABS: Basophils # 0.1 K/mcL (0.0-0.2); Eosinophils # 0.4 K/mcL (0.0-0.6); Hematocrit 33.9 % (37.5-50.1); Hemoglobin 11.4 g/dL (12.9-16.9); Immature Granulocytes % 0.3 % (0-4); Lymphocytes # 2.2 K/mcL (0.6-4.6); Lymphocytes % 24.5 %; Mean Corpuscular HGB Conc 33.6 g/dL (31.6-35.5); Mean Corpuscular Hemoglobin 30.9 pg (28.0-33.3); Mean Corpuscular Volume 91.9 fL (83.0-100.0); Mean Platelet Volume 9.8 fL (9.4-12.4); Monocytes # 1.1 K/mcL (0.0-1.3); Monocytes % 12.4 %; Neutrophils # 5.1 K/mcL (1.6-8.9); Platelet Count 537 K/mcL (140-400); Red Blood Count 3.69 M/mcL (4.19-5.50); Red Cell Distribution Width 12.5 % (11.5-14.5); Segmented Neutrophils % 57.8 %; White Blood Count 8.8 K/mcL (4.3-11.1)
[2021-12-12 03:52] LABS: BUN/Creatinine Ratio 7 (6-26); Blood Urea Nitrogen 6 mg/dL (6-20); Calcium 9.3 mg/dL (8.6-10.3); Carbon Dioxide 26 mEq/L (23-29); Chloride 104 mEq/L (98-107); Glucose 80 mg/dL (70-105); Magnesium 1.6 mg/dL (1.6-2.6); Osmolality,Calculated 289 (280-300); Phosphorous 3.6 mg/dL (2.7-4.5); Potassium 3.6 mEq/L (3.5-5.1); Sodium 141 mEq/L (136-145); eGFR For African Americans > 60 (> 60); eGFR For Non-African Americans > 60 (> 60)
[2021-12-12] MEDS: *HR* Heparin 5,000 UNIT/ML VIAL SQ SCH (05:19)
[2021-12-12] MEDS: Pantoprazole 40 MG VIAL IVP SCH (05:19)
[2021-12-12] MEDS: 0.9 % Sodium Chloride 1,000 ML IVC SCH ×2 (05:21→13:46)
[2021-12-12 08:27] VITALS: TEMP 97.6
[2021-12-12] MEDS: Fluconazole 400 MG/200 ML 400 MG/200 ML BAG IVPB SCH (08:58)
[2021-12-12 11:48] VITALS: BP 142/80; PULSE 88; O2SAT 93
[2021-12-12] MEDS ORDERED: Bismuth Subsalicylate 120 ML ORAL SUSPENSION PO SCH (13:00)
== END 2021-12-12 14:05 | disposition home or self-care (01) | DRG 853 ==
LOC: EMEROOARM 20:31 → 3ANU 20:31 → OBSVTOIN 12-07 00:32 → SUATTDRO 12-07 00:32 → 3ANU 12-07 01:53
PROVIDERS: ADMIT Internal Medicine; ATTEND Internal Medicine

== ENCOUNTER 2022-01-06 09:38 | Observation (INO) ==
[2022-01-06] MEDS ORDERED: Iopamidol - 370 500 ML MLS IVP ONE (10:12)
[2022-01-06] MEDS ORDERED: cefTRIAXone 1,000 MG in Water for inj. (sterile) 10 ML IVP ONE (10:12)
[2022-01-06] MEDS ORDERED: Ondansetron 4 MG/2 ML VIAL IVP ONE ×2 (10:14→11:43)
[2022-01-06] MEDS: 0.9 % Sodium Chloride 1,000 ML IVC SCH ×3 (10:35→15:35)
[2022-01-06 10:43] LABS: Bilirubin,Urine Negative (Negative); Blood,Urine Negative (Negative); Clarity,Urine Clear (Clear); Color,Urine Light-Orange (Yellow); Glucose,Urine (UA) Normal (Normal); Ketones,Urine Negative (Negative); Leukocyte Esterase,Urine Negative (Negative); Mucus,Urine Few per lpf (None-Few); Nitrite,Urine Negative (Negative); PH,Urine 6.5 pH Units (5.0-8.0); Protein,Urine 100 mg/dL (Neg-Trace); RBC,Urine 0-3 per hpf (0-3); Specific Gravity,Urine 1.027 (1.010-1.025); Squamous Epithelial Cell,Urine Few per hpf (None-Few); Urobilinogen,Urine Normal (Normal)
[2022-01-06 10:48] LABS: INR 1.6; Prothrombin Time 17.4 Seconds (9.4-12.1)
[2022-01-06 10:50] LABS: Alanine Aminotransferase 10 Units/L (7-52); Albumin 3.9 g/dL (3.5-5.7); Albumin/Globulin Ratio 1.5 (1.1-2.2); Alkaline Phosphatase 49 Units/L (34-104); Aspartate Amino Transferase 13 Units/L (13-39); BUN/Creatinine Ratio 13 (6-26); Bilirubin,Direct 0.2 mg/dL (0.0-0.2); Bilirubin,Indirect 0.6 mg/dL (0.0-1.0); Bilirubin,Total 0.8 mg/dL (0.3-1.0); Blood Urea Nitrogen 16 mg/dL (6-20); Carbon Dioxide 20 mEq/L (23-29); Chloride 100 mEq/L (98-107); Globulin 2.6 g/dL (2.4-3.5); Glucose 112 mg/dL (70-105); Lipase 11 Units/L (11-82); Magnesium 0.8 mg/dL (1.6-2.6); Osmolality,Calculated 282 (280-300); Potassium 3.4 mEq/L (3.5-5.1); Sodium 135 mEq/L (136-145); Total Protein 6.5 g/dL (6.4-8.9); Troponin I < 0.03 ng/mL (< 0.04); eGFR For African Americans > 60 (> 60); eGFR For Non-African Americans > 60 (> 60)
[2022-01-06 11:02] LABS: Thyroid Stimulating Hormone 0.341 mcIU/mL (0.340-5.600)
[2022-01-06 11:06] LABS: Mean Corpuscular Hemoglobin 31.1 pg (28.0-33.3); Red Cell Distribution Width 13.8 % (11.5-14.5)
[2022-01-06 11:07] LABS: Hematocrit 37.1 % (37.5-50.1); Hemoglobin 12.6 g/dL (12.9-16.9); Immature Platelets 4.4 % (1.1-6.1); Mean Corpuscular Volume 91.6 fL (83.0-100.0); Mean Platelet Volume 10.5 fL (9.4-12.4); Nucleated Red Blood Cells 0.1 /100 WBC (0); Platelet Count 228 K/mcL (140-400); Red Blood Count 4.05 M/mcL (4.19-5.50); White Blood Count 20.1 K/mcL (4.3-11.1)
[2022-01-06 11:17] LABS: Influenza A PCR Negative (Negative); Influenza B PCR Negative (Negative); Resp. Syncytial Virus PCR Negative (Negative)
[2022-01-06 11:18] LABS: SARS-CoV-2 by PCR (In House) Negative (Negative)
[2022-01-06 11:22] LABS: Lymphocytes # 0.4 K/mcL (0.6-4.6); Monocytes # 0.4 K/mcL (0.0-1.3); Neutrophils # 19.3 K/mcL (1.6-8.9); Platelet Estimate Normal (Normal)
[2022-01-06] MEDS ORDERED: MetroNIDAZOLE 500 MG/100 ML 500 MG/100 ML BAG IVPB ONE (13:09)
[2022-01-06] MEDS ORDERED: Ondansetron 4 MG/2 ML VIAL IVP PRN (13:55)
[2022-01-06] MEDS ORDERED: Naloxone 0.4 MG/ML INJ IVP PRN (13:55)
[2022-01-06] MEDS: Pantoprazole 40 MG VIAL IVP SCH (17:45)
[2022-01-07] MEDS: 0.9 % Sodium Chloride 1,000 ML IVC SCH (01:45)
[2022-01-07] MEDS: Pantoprazole 40 MG VIAL IVP SCH ×2 (05:27→17:03)
[2022-01-07 06:02] LABS: Eosinophils % 0.3 %; Lymphocytes % 4.9 %; Red Cell Distribution Width 14.1 % (11.5-14.5)
[2022-01-07 06:03] LABS: Basophils # 0.2 K/mcL (0.0-0.2); Basophils % 0.7 %; Eosinophils # 0.1 K/mcL (0.0-0.6); Hematocrit 36.8 % (37.5-50.1); Lymphocytes # 1.4 K/mcL (0.6-4.6); Mean Corpuscular HGB Conc 32.6 g/dL (31.6-35.5); Mean Corpuscular Hemoglobin 30.2 pg (28.0-33.3); Mean Corpuscular Volume 92.7 fL (83.0-100.0); Mean Platelet Volume 10.3 fL (9.4-12.4); Monocytes # 1.4 K/mcL (0.0-1.3); Monocytes % 5.2 %; Neutrophils # 23.9 K/mcL (1.6-8.9); Platelet Count 201 K/mcL (140-400); Red Blood Count 3.97 M/mcL (4.19-5.50); Segmented Neutrophils % 86.9 %; White Blood Count 27.5 K/mcL (4.3-11.1)
[2022-01-07 07:22] LABS: BUN/Creatinine Ratio 16 (6-26); Blood Urea Nitrogen 15 mg/dL (6-20); Calcium 8.1 mg/dL (8.6-10.3); Carbon Dioxide 22 mEq/L (23-29); Chloride 107 mEq/L (98-107); Glucose 84 mg/dL (70-105); Magnesium 1.5 mg/dL (1.6-2.6); Osmolality,Calculated 284 (280-300); Potassium 3.6 mEq/L (3.5-5.1); Sodium 137 mEq/L (136-145); eGFR For African Americans > 60 (> 60); eGFR For Non-African Americans > 60 (> 60)
[2022-01-07 08:21] LABS: Hypochromasia Present (Not Present); Poikilocytosis 1+ (Not Present)
[2022-01-07 08:22] LABS: Platelet Estimate Normal (Normal)
[2022-01-07] MEDS: Gabapentin 400 MG CAPSULE PO SCH ×2 (15:16→21:13)
[2022-01-07] MEDS ORDERED: Acetaminophen 325 MG TABLET PO PRN (17:12)
[2022-01-08] MEDS: Pantoprazole 40 MG VIAL IVP SCH (06:27)
[2022-01-08 07:05] VITALS: BP 110/67; PULSE 62; TEMP 97.6; O2SAT 99
[2022-01-08 07:43] LABS: Basophils # 0.1 K/mcL (0.0-0.2); Basophils % 0.8 %; Eosinophils # 0.2 K/mcL (0.0-0.6); Eosinophils % 1.6 %; Hematocrit 37.9 % (37.5-50.1); Hemoglobin 12.7 g/dL (12.9-16.9); Immature Granulocytes % 0.8 % (0-4); Lymphocytes # 1.8 K/mcL (0.6-4.6); Lymphocytes % 13.7 %; Mean Corpuscular HGB Conc 33.5 g/dL (31.6-35.5); Mean Corpuscular Hemoglobin 30.3 pg (28.0-33.3); Mean Corpuscular Volume 90.5 fL (83.0-100.0); Mean Platelet Volume 10.9 fL (9.4-12.4); Monocytes # 1.2 K/mcL (0.0-1.3); Monocytes % 9.1 %; Neutrophils # 9.7 K/mcL (1.6-8.9); Nucleated Red Blood Cells 0.2 /100 WBC (0); Platelet Count 229 K/mcL (140-400); Red Blood Count 4.19 M/mcL (4.19-5.50); Red Cell Distribution Width 13.9 % (11.5-14.5); White Blood Count 13.1 K/mcL (4.3-11.1)
[2022-01-08 08:01] LABS: BUN/Creatinine Ratio 11 (6-26); Blood Urea Nitrogen 10 mg/dL (6-20); Carbon Dioxide 25 mEq/L (23-29); Chloride 109 mEq/L (98-107); Potassium 3.7 mEq/L (3.5-5.1); Sodium 141 mEq/L (136-145)
[2022-01-08 08:02] LABS: Glucose 95 mg/dL (70-105); Magnesium 1.8 mg/dL (1.6-2.6); Osmolality,Calculated 291 (280-300); Phosphorous 2.5 mg/dL (2.7-4.5); eGFR For African Americans > 60 (> 60); eGFR For Non-African Americans > 60 (> 60)
[2022-01-08] MEDS: Gabapentin 400 MG CAPSULE PO SCH (08:10)
[2022-01-08 20:33] LABS: A.calcoaceticus-baumannii cplx Not Detected (Not Detect); Bacteroides fragilis by PCR Not Detected (Not Detect); CTX-M ESBL Gene Not Detected (Not Detect); Candida albicans by PCR Not Detected (Not Detect); Candida auris by PCR Not Detected (Not Detect); Candida glabrata by PCR Not Detected (Not Detect); Candida krusei by PCR Not Detected (Not Detect); Candida parapsilosis by PCR Not Detected (Not Detect); Candida tropicalis by PCR Not Detected (Not Detect); Crypto. neoformans/gattii PCR Not Detected (Not Detect); Enterobacter cloacae Cmplx PCR Not Detected (Not Detect); Enterobacterales by PCR Not Detected (Not Detect); Enterococcus faecalis by PCR Not Detected (Not Detect); Enterococcus faecium by PCR Not Detected (Not Detect); Escherichia coli by PCR Not Detected (Not Detect); IMP Carbapenem-Resist Gene Not Detected (Not Detect); Klebs. pneumoniae group by PCR Not Detected (Not Detect); Klebsiella aerogenes by PCR Not Detected (Not Detect); Klebsiella oxytoca by PCR Not Detected (Not Detect); NDM Carbapenem-Resist Gene Not Detected (Not Detect); OXA-48-like Carbap-Resist Gene Not Detected (Not Detect); Proteus by PCR Not Detected (Not Detect); Pseudomonas aeruginosa by PCR Not Detected (Not Detect); Salmonella species by PCR Not Detected (Not Detect); Serratia marcescens by PCR Not Detected (Not Detect); Staph epidermidis by PCR Not Detected (Not Detect); Staph lugdunensis by PCR Not Detected (Not Detect); Staphylococcus aureus by PCR Not Detected (Not Detect); Staphylococcus by PCR Not Detected (Not Detect); Stenotrophomonas maltophilia Not Detected (Not Detect); Streptococcus agalactiae(B)PCR Not Detected (Not Detect); Streptococcus by PCR Not Detected (Not Detect); Streptococcus pneumoniae PCR Not Detected (Not Detect); Streptococcus pyogenes (A) PCR Not Detected (Not Detect); VIM Carbapenem-Resist Gene Not Detected (Not Detect); blaKPC Carbapenem-Resist Gene Not Detected (Not Detect); mcr-1 Colistin-Resist Gene Not Detected (Not Detect); mecA/C & MREJ (MRSA) Gene Not Detected (Not Detect); mecA/C Methicillin-Resist Gene Not Detected (Not Detect); vanA/B Vancomycin-Resist Genes Not Detected (Not Detect)
== END 2022-01-08 09:10 | disposition home or self-care (01) ==
LOC: EMEROOARM 09:38 → 2ANU 09:38 → SUATTDRO 13:49 → 2ANU 15:07
PROVIDERS: ADMIT Internal Medicine; ATTEND Family Medicine

== ENCOUNTER 2022-03-02 08:45 | Inpatient (IN) ==
[2022-03-02 10:21] LABS: Hematocrit 49.7 % (37.5-50.1); Hemoglobin 16.3 g/dL (12.9-16.9); Mean Corpuscular HGB Conc 32.8 g/dL (31.6-35.5); Mean Corpuscular Hemoglobin 29.9 pg (28.0-33.3); Mean Platelet Volume 9.8 fL (9.4-12.4); Platelet Count 442 K/mcL (140-400); Red Blood Count 5.46 M/mcL (4.19-5.50); Red Cell Distribution Width 14.6 % (11.5-14.5); White Blood Count 11.7 K/mcL (4.3-11.1)
[2022-03-02 10:24] LABS: Bilirubin,Urine Small (Negative); Blood,Urine Negative (Negative); Clarity,Urine Clear (Clear); Color,Urine Yellow (Yellow); Glucose,Urine (UA) Normal (Normal); Ketones,Urine Trace mg/dL (Negative); Leukocyte Esterase,Urine Trace (Negative); Mucus,Urine Few per lpf (None-Few); Nitrite,Urine Negative (Negative); PH,Urine 6.5 pH Units (5.0-8.0); Protein,Urine 30 mg/dL (Neg-Trace); RBC,Urine 0-3 per hpf (0-3); Specific Gravity,Urine > 1.030 (1.010-1.025); Squamous Epithelial Cell,Urine Few per hpf (None-Few)
[2022-03-02 10:43] LABS: Albumin 5.3 g/dL (3.5-5.7); Albumin/Globulin Ratio 1.8 (1.1-2.2); Bilirubin,Direct 0.1 mg/dL (0.0-0.2); Bilirubin,Indirect 0.5 mg/dL (0.0-1.0); Bilirubin,Total 0.6 mg/dL (0.3-1.0); Calcium 10.7 mg/dL (8.6-10.3); Total Protein 8.3 g/dL (6.4-8.9)
[2022-03-02] MEDS: 0.9 % Sodium Chloride 1,000 ML IVC SCH ×3 (11:07→16:23)
[2022-03-02] MEDS ORDERED: Ondansetron 4 MG/2 ML VIAL IVP ONE (11:56)
[2022-03-02] MEDS ORDERED: *HR* HYDROmorphone (PF) 1 MG/ML SYRINGE IVP ONE (12:00)
[2022-03-02] MEDS ORDERED: Naloxone 0.4 MG/ML INJ IVP PRN (13:32)
[2022-03-02] MEDS: *HR* Heparin 5,000 UNIT/ML VIAL SQ SCH (17:43)
[2022-03-02] MEDS: *HR* HYDROmorphone (PF) 1 MG/ML SYRINGE IVP PRN ×2 (17:53→21:55)
[2022-03-03] MEDS: *HR* HYDROmorphone (PF) 1 MG/ML SYRINGE IVP PRN ×5 (04:18→22:23)
[2022-03-03] MEDS: 0.9 % Sodium Chloride 1,000 ML IVC SCH ×3 (04:21→22:23)
[2022-03-03] MEDS: *HR* Heparin 5,000 UNIT/ML VIAL SQ SCH ×2 (06:06→17:18)
[2022-03-03 09:07] LABS: Basophils # 0.1 K/mcL (0.0-0.2); Eosinophils # 0.1 K/mcL (0.0-0.6); Eosinophils % 1.1 %; Hematocrit 44.7 % (37.5-50.1); Immature Granulocytes % 0.3 % (0-4); Lymphocytes % 26.2 %; Mean Corpuscular HGB Conc 32.4 g/dL (31.6-35.5); Mean Corpuscular Hemoglobin 30.2 pg (28.0-33.3); Mean Corpuscular Volume 93.1 fL (83.0-100.0); Mean Platelet Volume 9.6 fL (9.4-12.4); Monocytes # 1.3 K/mcL (0.0-1.3); Monocytes % 11.4 %; Neutrophils # 6.9 K/mcL (1.6-8.9); Platelet Count 362 K/mcL (140-400); Red Cell Distribution Width 14.3 % (11.5-14.5); White Blood Count 11.5 K/mcL (4.3-11.1)
[2022-03-03 09:08] LABS: Hemoglobin 14.5 g/dL (12.9-16.9)
[2022-03-03 09:28] LABS: BUN/Creatinine Ratio 13 (6-26); Blood Urea Nitrogen 12 mg/dL (6-20); Calcium 9.4 mg/dL (8.6-10.3); Carbon Dioxide 27 mEq/L (23-29); Chloride 105 mEq/L (98-107); Glucose 78 mg/dL (70-105); Magnesium 1.7 mg/dL (1.6-2.6); Osmolality,Calculated 291 (280-300); Phosphorous 2.7 mg/dL (2.7-4.5); Potassium 3.6 mEq/L (3.5-5.1); Sodium 141 mEq/L (136-145)
[2022-03-03] MEDS: Ondansetron 4 MG/2 ML VIAL IVP PRN (12:48)
[2022-03-03] MEDS ORDERED: Dextrose Gel 15 GM/37.5 ML TUBE PO PRN ×2 (20:21)
[2022-03-03] MEDS ORDERED: D5% in Water 1,000 ML IVC PRN (20:21)
[2022-03-03] MEDS: *HR* Dextrose 50 % in Water (Syg) 50 ML SYRINGE IVP PRN (21:04)
[2022-03-04] MEDS: *HR* Dextrose 50 % in Water (Syg) 50 ML SYRINGE IVP PRN ×3 (00:45→17:22)
[2022-03-04] MEDS: Ondansetron 4 MG/2 ML VIAL IVP PRN (06:50)
[2022-03-04] MEDS: *HR* HYDROmorphone (PF) 1 MG/ML SYRINGE IVP PRN ×4 (06:50→21:30)
[2022-03-04] MEDS: *HR* Heparin 5,000 UNIT/ML VIAL SQ SCH ×2 (06:51→17:08)
[2022-03-04 10:34] LABS: Basophils # 0.1 K/mcL (0.0-0.2); Basophils % 1.2 %; Eosinophils # 0.1 K/mcL (0.0-0.6); Eosinophils % 1.2 %; Hematocrit 41.9 % (37.5-50.1); Hemoglobin 13.5 g/dL (12.9-16.9); Immature Granulocytes % 0.2 % (0-4); Lymphocytes # 2.2 K/mcL (0.6-4.6); Lymphocytes % 23.9 %; Mean Corpuscular HGB Conc 32.2 g/dL (31.6-35.5); Mean Corpuscular Hemoglobin 29.9 pg (28.0-33.3); Mean Corpuscular Volume 92.9 fL (83.0-100.0); Mean Platelet Volume 9.7 fL (9.4-12.4); Neutrophils # 5.7 K/mcL (1.6-8.9); Platelet Count 323 K/mcL (140-400); Red Blood Count 4.51 M/mcL (4.19-5.50); Segmented Neutrophils % 62.5 %; White Blood Count 9.1 K/mcL (4.3-11.1)
[2022-03-04 10:45] LABS: BUN/Creatinine Ratio 12 (6-26); Blood Urea Nitrogen 11 mg/dL (6-20); Calcium 9.1 mg/dL (8.6-10.3); Carbon Dioxide 30 mEq/L (23-29); Chloride 103 mEq/L (98-107); Glucose 100 mg/dL (70-105); Magnesium 1.7 mg/dL (1.6-2.6); Osmolality,Calculated 287 (280-300); Potassium 3.4 mEq/L (3.5-5.1); Sodium 139 mEq/L (136-145)
[2022-03-04 16:04] LABS: C-Reactive Protein 11 mg/L (Less than 10)
[2022-03-04] MEDS: D5% in 0.45% NACL w KCl 20 MEQ/1,000 ML MLS IVC SCH (17:09)
[2022-03-05 04:32] LABS: Basophils # 0.1 K/mcL (0.0-0.2); Basophils % 1.6 %; Eosinophils # 0.3 K/mcL (0.0-0.6); Eosinophils % 4.3 %; Hemoglobin 13.6 g/dL (12.9-16.9); Immature Granulocytes % 0.1 % (0-4); Lymphocytes # 2.2 K/mcL (0.6-4.6); Lymphocytes % 28.8 %; Mean Corpuscular HGB Conc 33.2 g/dL (31.6-35.5); Mean Corpuscular Hemoglobin 30.3 pg (28.0-33.3); Mean Corpuscular Volume 91.3 fL (83.0-100.0); Mean Platelet Volume 10.1 fL (9.4-12.4); Monocytes # 1.1 K/mcL (0.0-1.3); Monocytes % 13.9 %; Neutrophils # 3.9 K/mcL (1.6-8.9); Platelet Count 328 K/mcL (140-400); Red Blood Count 4.49 M/mcL (4.19-5.50); Red Cell Distribution Width 13.6 % (11.5-14.5); Segmented Neutrophils % 51.3 %; White Blood Count 7.7 K/mcL (4.3-11.1)
[2022-03-05 04:51] LABS: BUN/Creatinine Ratio 8 (6-26); Blood Urea Nitrogen 7 mg/dL (6-20); Calcium 9.3 mg/dL (8.6-10.3); Carbon Dioxide 31 mEq/L (23-29); Chloride 102 mEq/L (98-107); Glucose 98 mg/dL (70-105); Osmolality,Calculated 286 (280-300); Potassium 3.9 mEq/L (3.5-5.1); Sodium 139 mEq/L (136-145)
[2022-03-05] MEDS: *HR* Heparin 5,000 UNIT/ML VIAL SQ SCH ×2 (05:37→16:37)
[2022-03-05] MEDS: *HR* HYDROmorphone (PF) 1 MG/ML SYRINGE IVP PRN ×4 (06:58→20:53)
[2022-03-05] MEDS: MetroNIDAZOLE 500 MG/100 ML 500 MG/100 ML BAG IVPB SCH ×2 (12:20→16:37)
[2022-03-05] MEDS: MethylPREDNISolone 40 MG/ML VIAL IVP SCH ×3 (12:20→20:52)
[2022-03-05] MEDS ORDERED: Iopamidol - 370 500 ML MLS IVP ONE (13:48)
[2022-03-05] MEDS: D5% in 0.45% NACL w KCl 20 MEQ/1,000 ML MLS IVC SCH ×2 (15:10)
[2022-03-06] MEDS: MetroNIDAZOLE 500 MG/100 ML 500 MG/100 ML BAG IVPB SCH ×4 (00:05→23:54)
[2022-03-06] MEDS: *HR* HYDROmorphone (PF) 1 MG/ML SYRINGE IVP PRN ×3 (05:15→13:42)
[2022-03-06] MEDS: *HR* Heparin 5,000 UNIT/ML VIAL SQ SCH ×2 (05:15→17:34)
[2022-03-06] MEDS: MethylPREDNISolone 40 MG/ML VIAL IVP SCH ×3 (05:16→20:46)
[2022-03-06 06:01] LABS: Basophils % 0.1 %; Hematocrit 44.9 % (37.5-50.1); Hemoglobin 14.9 g/dL (12.9-16.9); Immature Granulocytes % 0.4 % (0-4); Lymphocytes # 0.9 K/mcL (0.6-4.6); Lymphocytes % 9.1 %; Mean Corpuscular HGB Conc 33.2 g/dL (31.6-35.5); Mean Corpuscular Hemoglobin 29.6 pg (28.0-33.3); Mean Corpuscular Volume 89.3 fL (83.0-100.0); Mean Platelet Volume 10.5 fL (9.4-12.4); Monocytes # 0.3 K/mcL (0.0-1.3); Monocytes % 2.6 %; Neutrophils # 9.1 K/mcL (1.6-8.9); Platelet Count 373 K/mcL (140-400); Red Blood Count 5.03 M/mcL (4.19-5.50); Red Cell Distribution Width 13.3 % (11.5-14.5); Segmented Neutrophils % 87.8 %; White Blood Count 10.4 K/mcL (4.3-11.1)
[2022-03-06 06:26] LABS: BUN/Creatinine Ratio 10 (6-26); Blood Urea Nitrogen 8 mg/dL (6-20); Calcium 10.1 mg/dL (8.6-10.3); Carbon Dioxide 28 mEq/L (23-29); Chloride 98 mEq/L (98-107); Glucose 140 mg/dL (70-105); Osmolality,Calculated 285 (280-300); Potassium 3.9 mEq/L (3.5-5.1); Sodium 137 mEq/L (136-145)
[2022-03-06] MEDS: D5% in 0.45% NACL w KCl 20 MEQ/1,000 ML MLS IVC SCH ×2 (13:42→20:52)
[2022-03-06] MEDS: Pantoprazole 40 MG VIAL IVP SCH (17:35)
[2022-03-06] MEDS: *HR* OxyCODONE Oral Soln 5 MG/5 ML UD.LIQ PO PRN (17:51)
[2022-03-07 02:38] LABS: BUN/Creatinine Ratio 13 (6-26); Blood Urea Nitrogen 11 mg/dL (6-20); Calcium 9.6 mg/dL (8.6-10.3); Carbon Dioxide 28 mEq/L (23-29); Chloride 100 mEq/L (98-107); Glucose 125 mg/dL (70-105); Magnesium 1.8 mg/dL (1.6-2.6); Osmolality,Calculated 287 (280-300); Potassium 3.9 mEq/L (3.5-5.1); Sodium 138 mEq/L (136-145)
[2022-03-07 02:58] LABS: Basophils % 0.1 %; Hematocrit 39.5 % (37.5-50.1); Hemoglobin 13.4 g/dL (12.9-16.9); Immature Granulocytes % 0.5 % (0-4); Lymphocytes # 1.1 K/mcL (0.6-4.6); Lymphocytes % 6.7 %; Mean Corpuscular HGB Conc 33.9 g/dL (31.6-35.5); Mean Corpuscular Hemoglobin 30.3 pg (28.0-33.3); Mean Corpuscular Volume 89.4 fL (83.0-100.0); Mean Platelet Volume 10.5 fL (9.4-12.4); Monocytes # 0.9 K/mcL (0.0-1.3); Monocytes % 5.3 %; Neutrophils # 14.8 K/mcL (1.6-8.9); Platelet Count 347 K/mcL (140-400); Red Blood Count 4.42 M/mcL (4.19-5.50); Red Cell Distribution Width 13.6 % (11.5-14.5); Segmented Neutrophils % 87.4 %
[2022-03-07] MEDS: MethylPREDNISolone 40 MG/ML VIAL IVP SCH ×3 (03:06→20:03)
[2022-03-07 03:08] LABS: White Blood Count 16.9 K/mcL (4.3-11.1)
[2022-03-07] MEDS: *HR* OxyCODONE Oral Soln 5 MG/5 ML UD.LIQ PO PRN ×4 (05:04→20:02)
[2022-03-07] MEDS: Pantoprazole 40 MG VIAL IVP SCH ×2 (05:06→17:23)
[2022-03-07] MEDS: *HR* Heparin 5,000 UNIT/ML VIAL SQ SCH ×2 (05:06→17:24)
[2022-03-07] MEDS: D5% in 0.45% NACL w KCl 20 MEQ/1,000 ML MLS IVC SCH ×2 (06:53→07:09)
[2022-03-07] MEDS: MetroNIDAZOLE 500 MG/100 ML 500 MG/100 ML BAG IVPB SCH ×2 (07:10→15:24)
[2022-03-07] MEDS: Gabapentin 400 MG CAPSULE PO SCH (20:02)
[2022-03-07] MEDS: Ondansetron 4 MG/2 ML VIAL IVP PRN (20:02)
[2022-03-08] MEDS: MetroNIDAZOLE 500 MG/100 ML 500 MG/100 ML BAG IVPB SCH ×3 (00:45→15:47)
[2022-03-08] MEDS: MethylPREDNISolone 40 MG/ML VIAL IVP SCH ×3 (03:41→20:43)
[2022-03-08 03:54] LABS: Basophils % 0.1 %; Hematocrit 42.3 % (37.5-50.1); Hemoglobin 13.6 g/dL (12.9-16.9); Immature Granulocytes % 0.4 % (0-4); Lymphocytes # 1.4 K/mcL (0.6-4.6); Lymphocytes % 8.8 %; Mean Corpuscular HGB Conc 32.2 g/dL (31.6-35.5); Mean Corpuscular Hemoglobin 29.5 pg (28.0-33.3); Mean Corpuscular Volume 91.8 fL (83.0-100.0); Monocytes # 1.1 K/mcL (0.0-1.3); Monocytes % 6.9 %; Neutrophils # 13.1 K/mcL (1.6-8.9); Platelet Count 346 K/mcL (140-400); Red Blood Count 4.61 M/mcL (4.19-5.50); Segmented Neutrophils % 83.8 %; White Blood Count 15.6 K/mcL (4.3-11.1)
[2022-03-08 04:10] LABS: BUN/Creatinine Ratio 10 (6-26); Blood Urea Nitrogen 10 mg/dL (6-20); Calcium 9.9 mg/dL (8.6-10.3); Carbon Dioxide 28 mEq/L (23-29); Chloride 102 mEq/L (98-107); Glucose 105 mg/dL (70-105); Osmolality,Calculated 283 (280-300); Potassium 4.5 mEq/L (3.5-5.1); Sodium 137 mEq/L (136-145)
[2022-03-08] MEDS: *HR* OxyCODONE Oral Soln 5 MG/5 ML UD.LIQ PO PRN ×4 (05:49→21:58)
[2022-03-08] MEDS: *HR* Heparin 5,000 UNIT/ML VIAL SQ SCH ×2 (05:49→16:52)
[2022-03-08] MEDS: Pantoprazole 40 MG VIAL IVP SCH (05:49)
[2022-03-08] MEDS: Gabapentin 400 MG CAPSULE PO SCH ×3 (08:13→20:43)
[2022-03-08 11:23] LABS: ANCA IFA Titer <1:20 (<1:20)
[2022-03-08 13:06] LABS: ANCA IFA Pattern NONE DETECTED (None Detected); Saccharomyces cerevisiae IgA 9.4 Units (0.0-24.9)
[2022-03-09] MEDS: MetroNIDAZOLE 500 MG/100 ML 500 MG/100 ML BAG IVPB SCH ×2 (01:19→08:30)
[2022-03-09] MEDS: MethylPREDNISolone 40 MG/ML VIAL IVP SCH (05:17)
[2022-03-09] MEDS: *HR* Heparin 5,000 UNIT/ML VIAL SQ SCH (05:18)
[2022-03-09 08:55] LABS: Basophils % 0.2 %; Hematocrit 47.6 % (37.5-50.1); Immature Granulocytes % 0.4 % (0-4); Lymphocytes # 1.2 K/mcL (0.6-4.6); Lymphocytes % 8.3 %; Mean Corpuscular HGB Conc 32.8 g/dL (31.6-35.5); Mean Corpuscular Hemoglobin 29.9 pg (28.0-33.3); Mean Corpuscular Volume 91.2 fL (83.0-100.0); Mean Platelet Volume 10.8 fL (9.4-12.4); Monocytes # 0.9 K/mcL (0.0-1.3); Monocytes % 6.6 %; Platelet Count 387 K/mcL (140-400); Red Blood Count 5.22 M/mcL (4.19-5.50); Red Cell Distribution Width 13.9 % (11.5-14.5); Segmented Neutrophils % 84.5 %; White Blood Count 14.2 K/mcL (4.3-11.1)
[2022-03-09 08:57] LABS: Hemoglobin 15.6 g/dL (12.9-16.9)
[2022-03-09 09:11] LABS: BUN/Creatinine Ratio 12 (6-26); Blood Urea Nitrogen 13 mg/dL (6-20); Calcium 10.4 mg/dL (8.6-10.3); Carbon Dioxide 27 mEq/L (23-29); Chloride 102 mEq/L (98-107); Glucose 92 mg/dL (70-105); Osmolality,Calculated 286 (280-300); Potassium 3.6 mEq/L (3.5-5.1); Sodium 138 mEq/L (136-145)
[2022-03-09] MEDS: Gabapentin 400 MG CAPSULE PO SCH (10:36)
[2022-03-09 12:01] VITALS: BP 151/95; PULSE 62; TEMP 98.5; O2SAT 100
== END 2022-03-09 12:57 | disposition home or self-care (01) | DRG 390 ==
LOC: 3ANU 08:45 → EMEROOARM 08:45 → SUATTDRO 14:04 → 3ANU 15:05 → SUATTDRO 03-05 18:05
PROVIDERS: ADMIT Internal Medicine; ATTEND Internal Medicine